=== PATIENT | female | born 1990 | race Asian ===

== ENCOUNTER 2024-09-22 15:30 | Inpatient (IN) | payer OTHER ==
[~2024-09-22] VITALS: Ht 154.9 cm; Wt 49.0 kg
[2024-09-22] MEDS ORDERED: ONDANSETRON HCL 4 MG/2 ML VIAL IVP PRN (18:15)
[2024-09-22 21:15] VITALS: BP 138/90; PULSE 92; RESP 18; TEMP 98.7; O2SAT 95
[2024-09-22] MEDS: HEPARIN SODIUM,PORCINE 5,000 UNITS/ML VIAL SQ SCH (23:53)
[2024-09-23 03:29] VITALS: BP 120/93; PULSE 95; RESP 18; TEMP 98; O2SAT 95
[2024-09-23 03:31] LABS: PH,URINE DRUG SCREEN 6.5 (5.0-8.0)
[2024-09-23 03:47] LABS: ALCOHOL, URINE DRUG SCREEN NEGATIVE (NEGATIVE); AMPHET/METH SCREEN,URINE NEGATIVE (NEGATIVE); BARBITURATE SCREEN, URINE NEGATIVE (NEGATIVE); CANNABINOID SCREEN,URINE NEGATIVE (NEGATIVE); COCAINE SCREEN,URINE NEGATIVE (NEGATIVE); METHADONE SCREEN, URINE NEGATIVE (NEGATIVE)
[2024-09-23 06:52] LABS: PLATELET COUNT (AUTO) 564 K/uL (150-450); RED BLOOD CELL COUNT(AUTO) 4.93 MIL/uL (4.00-5.20); RED CELL DISTRIBUTION WIDTH 13.2 % (11.5-14.5); WHITE BLOOD COUNT (AUTO) 11.8 K/uL (4.5-11.0)
[2024-09-23 07:04] LABS: CALCIUM, TOTAL 9.0 mg/dL (8.8-10.5); CREATININE 0.72 mg/dL (0.60-1.30); GLOMERULAR FILTR. RATE CALC > 60 mL/min (>60); GLUCOSE,RANDOM 125 mg/dL (70-110); SODIUM SERUM 136 mmol/L (136-145); UREA NITROGEN, BLOOD 14 mg/dL (7-18)
[2024-09-23 08:25] VITALS: BP 133/83; PULSE 101; RESP 18; TEMP 98.2; O2SAT 100
[2024-09-23] MEDS: BUPRENORPHINE HCL/NALOXONE HCL 2-0.5 MG SUBLINGUAL TABLET SL SCH (09:14)
[2024-09-23 19:23] VITALS: BP 121/81; PULSE 98; RESP 18; TEMP 98.2; O2SAT 97
[2024-09-24 08:37] VITALS: BP 113/74; PULSE 80; RESP 17; TEMP 97.9; O2SAT 98
[2024-09-24 20:28] VITALS: BP 133/81; PULSE 84; RESP 20; TEMP 97.9; O2SAT 98
[2024-09-25 07:35] VITALS: BP 120/77; PULSE 78; RESP 20; TEMP 97.9; O2SAT 97
[2024-09-25] MEDS ORDERED: BUPR1TAB45 SL (12:22)
[2024-09-25] MEDS ORDERED: HYDR25TA83 PO (12:27)
== END 2024-09-25 14:22 | DRG 897 ==
LOC: EMS 15:52 → EDH 18:02 → 6S 21:07 → 6N 09-23 15:25
PROVIDERS: ADMIT Internal Medicine; ATTEND Internal Medicine
DX: F11.23 Opioid dependence with withdrawal (principal); R65.10 Systemic inflammatory response syndrome (SIRS) of non-infectious origin without acute organ dysfunction; F41.9 Anxiety disorder, unspecified; J45.909 Unspecified asthma, uncomplicated; F15.10 Other stimulant abuse, uncomplicated; Z88.1 Allergy status to other antibiotic agents
CPT/HCPCS: 80048; 80307; 83735; 85025; 87081; 99285; J1644

== ENCOUNTER 2024-09-26 10:12 | Emergency (ER) | payer OTHER ==
[~2024-09-26] VITALS: Ht 160 cm; Wt 47.7 kg
[~2024-09-26 10:12] MED LIST: BUPR1TAB45 SL; HYDR25TA83 PO
[2024-09-26] MEDS: BUPRENORPHINE HCL/NALOXONE HCL 2-0.5 MG SUBLINGUAL TABLET SL ONE (11:16)
[2024-09-26 12:18] VITALS: TEMP 98
[2024-09-26 15:00] VITALS: BP 114/71; PULSE 91; RESP 16; O2SAT 97
== END 2024-09-26 15:42 ==
LOC: EMS 10:23
DX: F11.13 Opioid abuse with withdrawal (principal); J45.909 Unspecified asthma, uncomplicated; Z88.1 Allergy status to other antibiotic agents; Z79.899 Other long term (current) drug therapy
CPT/HCPCS: 99283; J0571